=== PATIENT | male | born 1955 | race Caucasian/White ===

== ENCOUNTER 2024-06-10 06:03 | Day surgery (SDC) | payer OTHER, SELFPAY ==
[2024-05-27 13:07] VITALS: BMI 28.6
[2024-06-10] VITALS (14 sets, daily range): BP systolic 95–147; BP diastolic 70–126
[2024-06-10 09:15] LABS: ACT-LR - POC 316 Seconds (116-155)
--- NOTE | 2024-06-10 09:53 | ITS.CL.ABL ---
Addendum entered and electronically signed by Abel Singh MD 06/10/24 10:06:
The date of procedure was actually June 10, 2024
Original Note:
[facility] Woman - Ablation
Ablation
Procedure Report:
ELECTROPHYSIOLOGY ABLATION STUDY
DATE:: June 11, 2024�����������������������������REFERRING: Dr. Surinder Long
INDICATION: Paroxysmal supraventricular tachycardia in the form of atrial fibrillation.� Also noted to have an atypical atrial flutter which was positive throughout the precordium with left axis and superiorly directed suggesting posterior wall
flutter. The patient presented in sinus rhythm
HISTORY: See H and P.� As above
ANTIARRHYTHMIC DRUG: Metoprolol
PRE-PROCEDURE ANNABEL: ANNABEL was performed as the patient did not take oral anticoagulation for 3 days prior to procedure and also on CT scan there was a suggestion of left atrial appendage thrombus which was likely excluded by the left atrial appendage
clip. See separate report by Dr. Mccauley which demonstrates an excluded left atrial appendage without communication and no left atrial thrombus or thrombus on the endocardial left atrium facing portion of the left atrial appendage clip.
PRESENTING RHYTHM: Sinus rhythm with competing junctional rhythm
'TIME-OUT':��called and confirmed.
SEDATION/ANESTHESIA:��provided via the anesthesia department using general anesthesia (LMA).
INTRAVENOUS/ARTERIAL ACCESS:
Right femoral venous - 8Fr
Left femoral venous - 8 Fr, 6 Fr
Ultrasound guidance for bilateral femoral vein access was utilized by me to obtain access with demonstration of normal anatomy
CHADS-VASC Score:
HAS-Bled Score
PROCEDURE:
1.��A decapolar CS catheter was placed within the CS for mapping and pacing.��This was also used as the reference catheter for the 3-D map.
2. The intracardiac ultrasound catheter was positioned in the RA to identify the FO for targeting of transseptal puncture, assist��in identification of the pulmonary vein ostia, monitoring pre and post ablation pulmonary vein flow velocities,
monitoring for 'bubble' formation during RF application as a sign of thermal injury,��and to monitor for pericardial effusion during mapping and ablation procedure.���Left atrial size, LV ejection fraction, and pulmonary vein flows were monitored
pre and post ablation procedure. The other valves were inspected and found to be free of significant regurgitation or stenosis.
3.��Half of the calculated heparin bolus was administered prior to the first transeptal puncture.��Transseptal puncture was performed to diagnose RA and LA pressure so that safety of LA mapping and ablation could be further assessed, and to access
the left atrium and pulmonary veins for mapping and ablation.��This entailed advancing an 18 [place] wire sheath dilator apparatus with dilator into the superior vena cava and withdrawing both (monitoring intracardiac ultrasound, fluoroscopy and tip
pressure) with the tip oriented toward the atrial septum.��The fossa ovalis was engaged (indicated by sudden displacement of the sheath tip as well as tenting of the fossa seen on intracardiac ultrasound).��Left atrial access required a pass with
the [place] needle extended.��Left atrial catheter position was confirmed by pressure monitoring (RA mean pressure 8 mm Hg and LA mean presure 14 mm Hg), LA saturation (99%),��as well as fluoroscopy.��The sheath was advanced over the dilator
and positioned in the left atrium.��The remainder of the calculated heparin bolus was administered and heparin was
infused to maintain ACT at 300 -350 seconds throughout the case.
4.��RA pacing was performed via the proximal decapolar poles and LA pacing was performed via the distal decapolr poles.
5. A quadrapolar catheter was first positioned at the His position for His Bundle recording which was tagged via the 3-D Navex sytem, and then passed to the RVA for RV pacing and recording.
6. The multipolar catheter and the PFA catheter placed in each of the LIPV, LSPV, RSPV and the RIPV.��
7.��Next, a 3-D map was created using Navex.���A 3-D reconstructed CT image was compared to the 3-D Navex map to assist in anatomic interpretation, mapping and ablation.��The CT image and the NavX image were fused.
8. A total of 52 lesions were given to the pulmonary veins and the left atrial posterior wall. [place] and basket pose were given to each of the 4 pulmonary veins and flower post to the roof posterior wall and floor of the left atrium. Lesion set
was extended somewhat anteriorly to the pulmonary veins and for the majority of the floor of the left atrium as well. Narrow area of healthy voltage around the mitral valve ring was left intact. As above the left atrial appendage was excluded from
flow by the MART epicardial clip with ANNABEL imaging. Once this was performed and entrance and exit block was confirmed in all 4 pulmonary veins as well as the posterior wall EPS with stim down to the left and right atrial refractoriness was performed
demonstrating no other tachyarrhythmia inducible.
9. Normal sinus node and AV radha function were noted. There were periods of intermittent junctional rhythm which are hemodynamically tolerated.
TOTAL FLOURO TIME: 14.6 minutes
TOTAL RF DURATION: 0 minutes
REVERSAL OF HEPARIN: 35 mg of protamine, slow IV administration
COMPLICATIONS:
None
Intracardiac US shows no pericardial effusion post ablation.
SUMMARY:��
Complex left atrial mapping and ablation.
Isolation of all 4 pulmonary veins as well as the floor roof and left atrial posterior wall. Preablation ANNABEL was performed demonstrating no left atrial clot with an excluded left atrial appendage. The ANNABEL and preablation CT were directly reviewed
by me prior to transseptal puncture. Noninducible for any other tachyarrhythmias beyond what was ablated.
RECOMMENDATIONS:
1. Ambulate 4 hours
2. Resume anticoagulation
3.� Consider same-day discharge
4.��Consider lowering metoprolol as outpatient to 25 mg daily succinate
Copy to: Dr. Surinder Long
--- NOTE | 2024-06-10 14:35 | W.PN.UPDATE ---
Update Note
Progress Note Update
Pt seen post PFA. Bilat groin sites without ht/bleeding, non tender. OOB ambulating, urinating without difficulty. Post EKG NSR 60s w/PAC, PVC, no acute changes. Resume eliquis tonight. Pt is <1yr from coronary stenting, will remain on plavix at
this time as well. Followup with Dr. Long as scheduled. Home today if groin sites/tele remain stable.
== END 2024-06-10 14:28 | disposition home or self-care (01) ==
LOC: CATH 06:03
PROVIDERS: ATTENDING PHYSICIAN Internal Medicine Cardiovascular Disease; FAMILY PHYSICIAN Internal Medicine; OTHER PHYSICIAN Internal Medicine Cardiovascular Disease
DX: I48.0 Paroxysmal atrial fibrillation (principal); I47.19 Other supraventricular tachycardia; I48.4 Atypical atrial flutter; I08.3 Combined rheumatic disorders of mitral, aortic and tricuspid valves; I25.810 Atherosclerosis of coronary artery bypass graft(s) without angina pectoris; I10 Essential (primary) hypertension; E78.5 Hyperlipidemia, unspecified; Z72.0 Tobacco use; Z79.01 Long term (current) use of anticoagulants; Z79.02 Long term (current) use of antithrombotics/antiplatelets; Z79.84 Long term (current) use of oral hypoglycemic drugs
CPT/HCPCS: 93312; 93320; 93325; C1732; C1894; C1730; C1892; C1759; C1733; C1766; 85347; 93005; 93656; 93657